=== PATIENT | male | born 1975 | race Two or more races ===

== ENCOUNTER 2016-03-23 05:43 | Emergency (ER) | payer OTHER ==
[~2016-03-23] VITALS: Ht 167.6 cm; Wt 77.1 kg
[2016-03-23 06:04] VITALS: BP 126/77
[2016-03-23 06:37] LABS: KETONES,URINE TRACE (NEGATIVE); LEUKOCYTE ESTERASE ,URINE NEGATIVE (NEGATIVE); PH,URINE 6.5 (5.0-8.0)
[2016-03-23 06:46] LABS: ADD UA MICROSCOPIC NO
[2016-03-23] MEDS ORDERED: CEFTRIAXONE 500 MG VIAL ONE (06:52)
[2016-03-23] MEDS ORDERED: LIDOCAINE /MPF 1% VIAL 5 ML VIAL ONE (06:52)
[2016-03-23] MEDS ORDERED: AZITHROMYCIN 250 MG TABLET ONE (06:52)
[2016-03-23] MEDS ORDERED: CEFTRIAXONE 500 MG VIAL IM ONE (07:00)
[2016-03-23] MEDS ORDERED: AZITHROMYCIN 250 MG TABLET PO ONE (07:00)
== END 2016-03-23 07:04 | disposition home or self-care (01) ==
LOC: ER 05:43
DX: N34.2 Other urethritis (principal); B07.9 Viral wart, unspecified; I10 Essential (primary) hypertension
CPT/HCPCS: 81001; 87491; 87591; 96372; 99284; A4606; J0696; J3490; Z7610; 81000-TC

== ENCOUNTER 2016-05-05 04:43 | Emergency (ER) | payer OTHER ==
[~2016-05-05] VITALS: Ht 167.6 cm; Wt 79.4 kg
[2016-05-05 04:47] VITALS: BP 148/78
[2016-05-05] MEDS ORDERED: AZITHROMYCIN 250 MG TABLET ONE (05:20)
[2016-05-05] MEDS ORDERED: CEFTRIAXONE 1 G VIAL ONE (05:20)
[2016-05-05] MEDS ORDERED: CEFTRIAXONE 500 MG VIAL ONE (05:24)
[2016-05-05] MEDS ORDERED: LIDOCAINE /MPF 1% VIAL 5 ML VIAL ONE (05:24)
[2016-05-05] MEDS ORDERED: AZITHROMYCIN 250 MG TABLET PO ONE (05:30)
[2016-05-05] MEDS ORDERED: CEFTRIAXONE 500 MG VIAL IM ONE (05:30)
== END 2016-05-05 05:35 | disposition home or self-care (01) ==
LOC: ER 04:44
DX: A63.0 Anogenital (venereal) warts (principal); A64 Unspecified sexually transmitted disease; I10 Essential (primary) hypertension
CPT/HCPCS: A4606; J0696; J3490; Z7610

== ENCOUNTER 2018-09-10 03:08 | Emergency (ER) | payer MEDICAID ==
[~2018-09-10] VITALS: Ht 167.6 cm; Wt 83.9 kg
[2018-09-10 03:26] VITALS: BP 157/103
--- NOTE | 2018-09-10 03:26 | NUR ---
BIBSELF C/O R GROIN AREA PAIN X 3 DAYS S/P LIFTING [id number]. C/O OF LEFT GROIN PAIN. PT IN NO ACUTE DISTRESS RESPIRATIONS EVEN AND UNLABORED. SKIN WARN AND IN TACT.
[2018-09-10] MEDS ORDERED: MORPHINE SULFATE INJ 4 MG/ML DISP.SYRIN ONE (04:10)
[2018-09-10] MEDS ORDERED: MORPHINE SULFATE INJ 2 MG/ML DISP.SYRIN ONE (04:14)
[2018-09-10] MEDS ORDERED: MORPHINE SULFATE INJ 2 MG/ML DISP.SYRIN IM ONE (04:30)
--- NOTE | 2018-09-10 04:33 | NUR ---
MORPHINE 6 MG ADMINISTERED IM PER MD ORDER.
== END 2018-09-10 04:42 | disposition home or self-care (01) ==
LOC: ER 03:18
DX: K40.90 Unilateral inguinal hernia, without obstruction or gangrene, not specified as recurrent (principal); I10 Essential (primary) hypertension; F11.10 Opioid abuse, uncomplicated
CPT/HCPCS: 96372; 99283; J2270 ×2

== ENCOUNTER 2022-07-07 03:50 | Emergency (ER) | payer MEDICAID ==
[~2022-07-07] VITALS: Ht 167.6 cm; Wt 77.1 kg
[2022-07-07] MEDS ORDERED: IBUPROFEN 400 MG TABLET ONE (05:16)
[2022-07-07] MEDS: IBUPROFEN 400 MG TABLET PO ONE (05:17)
--- NOTE | 2022-07-07 05:20 | NUR ---
RADIOLOGY ON BED SIDE.
--- NOTE | 2022-07-07 05:34 | NUR ---
PT DISCHARGED IN STABLE CONDITION.
[2022-07-07 05:35] VITALS: BP 158/91
== END 2022-07-07 05:36 | disposition home or self-care (01) ==
LOC: ER 03:53
DX: S90.111A Contusion of right great toe without damage to nail, initial encounter (principal); I10 Essential (primary) hypertension; W04.XXXA Fall while being carried or supported by other persons, initial encounter; Y93.89 Activity, other specified; Y92.89 Other specified places as the place of occurrence of the external cause; Y99.8 Other external cause status
CPT/HCPCS: 73660-TC